=== PATIENT | male | born 1955 | race African-American/Black ===

== ENCOUNTER 2017-05-01 09:05 | Inpatient (IN) | payer MEDICAID, OTHER ==
[2017-05-01] VITALS (27 sets, daily range): BP systolic 123–167; BP diastolic 77–136
[~2017-05-01] VITALS: Ht 170.2 cm; Wt 69.9 kg
[~2017-05-01 09:05] MED LIST: ASPIRIN EC325 MG ORAL; METOPROLOL TART25 MG ORAL; NKM
[2017-05-01] MEDS ORDERED: Aspirin Baby 81mg ORAL ONE (09:30)
[2017-05-01 09:59] LABS: BASOPHILS % (AUTO) 1.5 % (0.0-2.0); EOSINOPHILS % (AUTO) 2.3 % (0.0-3.0); LYMPHOCYTES % (AUTO) 35.2 % (20.0-45.0); MEAN CORPUSCULAR HEMOGLOBIN 24.1 PG (27.0-31.0); MEAN CORPUSCULAR HGB CONC 31.3 G/DL (32.0-36.0); MEAN CORPUSCULAR VOLUME 77 FL (80-99); MEAN PLATELET VOLUME 8.6 FL (6.5-10.1); MONOCYTES % (AUTO) 5.5 % (1.0-10.0); NEUTROPHILS % (AUTO) 55.6 % (45.0-75.0); PLATELET COUNT 237 K/UL (150-450); RED BLOOD COUNT 6.33 M/UL (4.70-6.10); RED CELL DISTRIBUTION WIDTH 13.9 % (11.6-14.8); WHITE BLOOD COUNT 7.6 K/UL (4.8-10.8)
[2017-05-01 10:00] LABS: APPEARANCE,URINE CLEAR; KETONES,URINE NEGATIVE (NEGATIVE); LEUKOCYTE ESTERASE ,URINE 2+ (NEGATIVE); NITRITE,URINE NEGATIVE (NEGATIVE); PH,URINE 6.5 (4.5-8.0); PROTEIN,URINE 2+ (NEGATIVE); UROBILINOGEN,URINE 1 MG/DL (0.0-1.0)
[2017-05-01 10:10] LABS: RBC,URINE 0-2 /HPF (0 - 0); SQUAMOUS EPITHELIAL CELL,UR FEW /LPF (NONE/OCC); WBC,URINE 15-20 /HPF (0 - 0)
[2017-05-01 10:11] LABS: BACTERIA,URINE FEW /HPF
--- NOTE | 2017-05-01 10:14 | Diagnostic Imaging Report ---
Indication: Chest pain Technique: One view of the chest Comparison: 03/21/2014 Findings: The heart is of is normal in size. Lungs and pleural spaces are clear. The aorta is tortuous and ectatic. There is no significant change Impression: No acute process
[2017-05-01] MEDS ORDERED: Diltiazem 25mg/5ml IV ONE ×2 (10:15→12:45)
[2017-05-01 10:22] LABS: ALANINE AMINOTRANSFERASE 24 U/L (3-41); ALBUMIN/GLOBULIN RATIO 1.3 (1.0-2.7); ANION GAP 15 (5-15); ASPARTATE AMINO TRANSFERASE 29 U/L (5-40); CALCIUM 9.3 mg/dL (8.6-10.2); CARBON DIOXIDE 22 mEQ/L (20-30); CHLORIDE 100 mEQ/L (98-107); CREATININE 1.3 mg/dL (0.7-1.2); GLOMERULAR FILTRATION RATE > 60 mL/min (>60); HEMOLYSIS 16; POTASSIUM 4.4 mEQ/L (3.4-4.9); SODIUM 137 mEQ/L (135-145); TOTAL PROTEIN 6.9 g/dL (6.6-8.7); TROPONIN I < 0.30 ng/mL (<=0.30)
[2017-05-01 10:26] LABS: PROTHROMBIN TIME 10.9 SEC (9.30-11.50)
[2017-05-01 10:32] LABS: CKMB 1.6 ng/mL (< 6.7)
--- NOTE | 2017-05-01 13:20 | Emergency Room Report ---
History of Present Illness General Chief Complaint: Chest Pain Source: Patient Present Illness [facility] This patient presents with chest pain. The patient states that around 10 PM last night he developed chest pain and tightness. He states that he was about to go to bed and the symptoms began. He denies recent illness. He denies fever chills. Denies cough or congestion. He denies nausea or vomiting. He has no other complaints. Allergies: Coded Allergies: No Known Allergies (Unverified , 03/21/14) Patient History Past Medical History: see triage record, GERD, other - arrhythmia (pt states told he needs a pacemaker) Social History: Reports: alcohol use, drug use, smoking Reviewed Nursing Documentation: PMH: Agreed, PSxH: Agreed Nursing Documentation-PMH Past Medical History: No History, Except For Hx Cardiac Problems: Yes - irregular heartbeat Hx Hypertension: No Hx Pacemaker: No Hx Asthma: No Hx COPD: No Hx Diabetes: No Hx Cancer: No Hx Gastrointestinal Problems: Yes - GERD Hx Dialysis: No Hx Cerebrovascular Accident: No Hx Seizures: No Review of Systems All Other Systems: negative except mentioned in HPI Physical Exam Vital Signs Date Time Temp Pulse Resp B/P Pulse Ox O2 Delivery O2 Flow Rate FiO2 05/01/17 09:12 97.7 148 22 124/89 98 Room Air Sp02 EP Interpretation: reviewed, normal General Appearance: no apparent distress, alert, GCS 15, non-toxic Head: normocephalic, atraumatic Eyes: bilateral eye PERRL, bilateral eye normal inspection ENT: hearing grossly normal, normal pharynx, no angioedema, normal voice Neck: full range of motion, supple/symm/no masses Respiratory: chest non-tender, lungs clear, normal breath sounds, no respiratory distress, no retraction, no accessory muscle use, speaking full sentences Cardiovascular #1: no edema, tachycardia Gastrointestinal: normal bowel sounds, non tender, soft, non-distended, no guarding, no rebound Rectal: deferred Musculoskeletal: back normal, gait/station normal, normal range of motion, non- tender Neurologic: alert, oriented x3, responsive, motor strength/tone normal, sensory intact, speech normal Psychiatric: judgement/insight normal, memory normal, mood/affect normal, no suicidal/homicidal ideation Skin: normal color, no rash, warm/dry, well hydrated Medical Decision Making Diagnostic Impression: Primary Impression: Chest pain Additional Impressions: Cocaine abuse Atrial fibrillation with RVR ER Course This patient presents with chest pain and tachycardia into the 140s. He was also found to have a positive urinalysis for cocaine. He states that he thinks the marijuana he used at a concert had cocaine in it. Initial evaluation for acute coronary syndrome is negative with a normal troponin. This patient will be admitted for uncontrolled tachycardia. He was given 20 mg of diltiazem IV here in the emergency department. He did have a persistent her he in the 130s to 140s. Therefore, I started this patient on a diltiazem drip. He was admitted for further evaluation and treatment. This patient is critically ill. This patient required complex medical decision- making, aggressive intervention, extensive laboratory workup and monitoring. Critical care time: 40 minutes. Labs Test 05/01/17 09:30 05/01/17 09:51 White Blood Count 7.6 K/UL (4.8-10.8) Red Blood Count 6.33 M/UL (4.70-6.10) Hemoglobin 15.2 G/DL (14.2-18.0) Hematocrit 48.6 % (42.0-52.0) Mean Corpuscular Volume 77 FL (80-99) Mean Corpuscular Hemoglobin 24.1 PG (27.0-31.0) Mean Corpuscular Hemoglobin Concent 31.3 G/DL (32.0-36.0) Red Cell Distribution Width 13.9 % (11.6-14.8) Platelet Count 237 K/UL (150-450) Mean Platelet Volume 8.6 FL (6.5-10.1) Neutrophils (%) (Auto) 55.6 % (45.0-75.0) Lymphocytes (%) (Auto) 35.2 % (20.0-45.0) Monocytes (%) (Auto) 5.5 % (1.0-10.0) Eosinophils (%) (Auto) 2.3 % (0.0-3.0) Basophils (%) (Auto) 1.5 % (0.0-2.0) Prothrombin Time 10.9 SEC (9.30-11.50) Prothromb Time International Ratio 1.0 (0.9-1.1) Activated Partial Thromboplast Time 30 SEC (23-33) Sodium Level 137 mEQ/L (135-145) Potassium Level 4.4 mEQ/L (3.4-4.9) Chloride Level 100 mEQ/L (98-107) Carbon Dioxide Level 22 mEQ/L (20-30) Anion Gap 15 (5-15) Blood Urea Nitrogen 11 mg/dL (7-23) Creatinine 1.3 mg/dL (0.7-1.2) Estimat Glomerular Filtration Rate > 60 mL/min (>60) Glucose Level 147 mg/dL (74-106) Calcium Level 9.3 mg/dL (8.6-10.2) Total Bilirubin 0.6 mg/dL (0.0-1.2) Aspartate Amino Transf (AST/SGOT) 29 U/L (5-40) Alanine Aminotransferase (ALT/SGPT) 24 U/L (3-41) Alkaline Phosphatase 91 U/L (40-129) Total Creatine Kinase 60 U/L (38-174) Creatine Kinase MB 1.6 ng/mL (< 6.7) Creatine Kinase MB Relative Index 2.6 Troponin I < 0.30 ng/mL (<=0.30) Pro-B-Type Natriuretic Peptide 3279 pg/mL (0-125) Total Protein 6.9 g/dL (6.6-8.7) Albumin 4.0 g/dL (3.5-5.2) Globulin 2.9 g/dL Albumin/Globulin Ratio 1.3 (1.0-2.7) Urine Color Yellow Urine Appearance Clear Urine pH 6.5 (4.5-8.0) Urine Specific [place] 1.010 (1.005-1.035) Urine Protein 2+ (NEGATIVE) Urine Glucose (UA) Negative (NEGATIVE) Urine Ketones Negative (NEGATIVE) Urine Occult Blood Negative (NEGATIVE) Urine Nitrite Negative (NEGATIVE) Urine Bilirubin Negative (NEGATIVE) Urine Urobilinogen 1 MG/DL (0.0-1.0) Urine Leukocyte Esterase 2+ (NEGATIVE) Urine RBC 0-2 /HPF (0 - 0) Urine WBC 15-20 /HPF (0 - 0) Urine Squamous Epithelial Cells Few /LPF (NONE/OCC) Urine Bacteria Few /HPF (NONE) Urine Opiates Screen Negative (NEGATIVE) Urine Barbiturates Screen Negative (NEGATIVE) Phencyclidine (PCP) Screen Negative (NEGATIVE) Urine Amphetamines Screen Negative (NEGATIVE) Urine Benzodiazepines Screen Negative (NEGATIVE) Urine Cocaine Screen Positive (NEGATIVE) Urine Marijuana (THC) Screen Positive (NEGATIVE) EKG Diagnostic Results Rate: tachycardiac Rhythm: other ST Segments: no acute changes Other Impression A.fib w/ RVR Chest X-Ray Diagnostic Results Chest X-Ray Ordered: Yes # of Views/Limited/Complete: 1 View Interpretation: no consolidation, no effusion, no pneumothorax, no acute cardiopulmonary disease Indication: Chest Pain Impression: No acute disease Date Electronically Signed: May 01, 2017 Time Electronically Signed: 13:35 Last Vital Signs Date Time Temp Pulse Resp B/P Pulse Ox O2 Delivery O2 Flow Rate FiO2 05/01/17 12:49 135 153/122 05/01/17 11:30 22 98 Room Air 05/01/17 09:12 97.7 Disposition: ADMITTED INPATIENT Condition: Critical Referrals: JARRET GRIJALVA PLN,REFERRI (PCP) SHERIN BLEDSOE D.O. May 01, 2017 13:20
[2017-05-01] MEDS ORDERED: Diltiazem 125mg/25ml Inj IV ONE (14:00)
[2017-05-01] MEDS ORDERED: Morphine Sulfate 2mg/ml Inj IVP PRN ×2 (16:15→17:00)
[2017-05-01] MEDS ORDERED: Nitroglycerin Subl 0.4mg tab (Bottle Of 25) SL PRN (16:15)
[2017-05-01] MEDS: Enoxaparin Sodium 300mg/3ml vial SUBQ SCH (17:40)
--- NOTE | 2017-05-01 19:47 | Cardiology Progress Note ---
Assessment/Plan Assessment/Plan The patient is seen and examined, full consult note will be dictated. Objective Last 24 Hour Vital Signs Date Time Temp Pulse Resp B/P Pulse Ox O2 Delivery O2 Flow Rate FiO2 05/01/17 18:00 132 26 142/115 99 Room Air 05/01/17 17:24 139 05/01/17 17:01 134 20 133/120 99 Room Air 05/01/17 17:00 97.0 135 24 160/100 99 Room Air 05/01/17 15:47 146 21 144/103 99 Room Air 05/01/17 15:32 146 21 131/100 98 Room Air 05/01/17 15:17 134 16 147/112 99 Room Air 05/01/17 15:02 129 21 149/110 99 Room Air 05/01/17 14:47 138 21 163/129 100 Room Air 05/01/17 14:32 141 22 160/111 100 Room Air 05/01/17 14:17 130 23 137/109 100 Room Air 05/01/17 14:02 135 23 167/108 100 Room Air 05/01/17 14:02 135 167/108 05/01/17 13:12 97.8 117 21 133/105 100 Room Air 05/01/17 12:49 135 153/122 05/01/17 11:30 123 22 146/109 98 Room Air 05/01/17 11:02 142 22 146/109 98 Room Air 05/01/17 10:31 145 139/103 05/01/17 09:39 148 22 Room Air 05/01/17 09:39 146 22 124/89 98 Room Air 05/01/17 09:12 97.7 148 22 124/89 98 Room Air Laboratory Tests Test 05/01/17 09:30 05/01/17 09:51 05/01/17 10:00 White Blood Count 7.6 K/UL (4.8-10.8) Red Blood Count 6.33 M/UL (4.70-6.10) H Hemoglobin 15.2 G/DL (14.2-18.0) Hematocrit 48.6 % (42.0-52.0) Mean Corpuscular Volume 77 FL (80-99) L Mean Corpuscular Hemoglobin 24.1 PG (27.0-31.0) L Mean Corpuscular Hemoglobin Concent 31.3 G/DL (32.0-36.0) L Red Cell Distribution Width 13.9 % (11.6-14.8) Platelet Count 237 K/UL (150-450) Mean Platelet Volume 8.6 FL (6.5-10.1) Neutrophils (%) (Auto) 55.6 % (45.0-75.0) Lymphocytes (%) (Auto) 35.2 % (20.0-45.0) Monocytes (%) (Auto) 5.5 % (1.0-10.0) Eosinophils (%) (Auto) 2.3 % (0.0-3.0) Basophils (%) (Auto) 1.5 % (0.0-2.0) Prothrombin Time 10.9 SEC (9.30-11.50) Prothromb Time International Ratio 1.0 (0.9-1.1) Activated Partial Thromboplast Time 30 SEC (23-33) Sodium Level 137 mEQ/L (135-145) Potassium Level 4.4 mEQ/L (3.4-4.9) Chloride Level 100 mEQ/L (98-107) Carbon Dioxide Level 22 mEQ/L (20-30) Anion Gap 15 (5-15) Blood Urea Nitrogen 11 mg/dL (7-23) Creatinine 1.3 mg/dL (0.7-1.2) H Estimat Glomerular Filtration Rate > 60 mL/min (>60) Glucose Level 147 mg/dL (74-106) H Calcium Level 9.3 mg/dL (8.6-10.2) Total Bilirubin 0.6 mg/dL (0.0-1.2) Aspartate Amino Transf (AST/SGOT) 29 U/L (5-40) Alanine Aminotransferase (ALT/SGPT) 24 U/L (3-41) Alkaline Phosphatase 91 U/L (40-129) Total Creatine Kinase 60 U/L (38-174) Creatine Kinase MB 1.6 ng/mL (< 6.7) Creatine Kinase MB Relative Index 2.6 Troponin I < 0.30 ng/mL (<=0.30) Pro-B-Type Natriuretic Peptide 3279 pg/mL (0-125) H Total Protein 6.9 g/dL (6.6-8.7) Albumin 4.0 g/dL (3.5-5.2) Globulin 2.9 g/dL Albumin/Globulin Ratio 1.3 (1.0-2.7) Urine Color Yellow Urine Appearance Clear Urine pH 6.5 (4.5-8.0) Urine Specific [place] 1.010 (1.005-1.035) Urine Protein 2+ (NEGATIVE) H Urine Glucose (UA) Negative (NEGATIVE) Urine Ketones Negative (NEGATIVE) Urine Occult Blood Negative (NEGATIVE) Urine Nitrite Negative (NEGATIVE) Urine Bilirubin Negative (NEGATIVE) Urine Urobilinogen 1 MG/DL (0.0-1.0) H Urine Leukocyte Esterase 2+ (NEGATIVE) H Urine RBC 0-2 /HPF (0 - 0) H Urine WBC 15-20 /HPF (0 - 0) H Urine Squamous Epithelial Cells Few /LPF (NONE/OCC) Urine Bacteria Few /HPF (NONE) Urine Opiates Screen Negative (NEGATIVE) Urine Barbiturates Screen Negative (NEGATIVE) Phencyclidine (PCP) Screen Negative (NEGATIVE) Urine Amphetamines Screen Negative (NEGATIVE) Urine Benzodiazepines Screen Negative (NEGATIVE) Urine Cocaine Screen Positive (NEGATIVE) H Urine Marijuana (THC) Screen Positive (NEGATIVE) H Hemoglobin A1c 6.3 % (< 6.0) H KATERINA ANN May 01, 2017 19:47
[2017-05-01] MEDS ORDERED: Triamterene/Hctz 37.5/25 cap ORAL SCH (20:00)
[2017-05-01] MEDS ORDERED: Ketorolac 30mg Inj IV PRN (23:00)
[2017-05-02] VITALS (14 sets, daily range): BP systolic 122–151; BP diastolic 72–97
[2017-05-02] MEDS ORDERED: Morphine Sulfate 2mg/ml Inj IVP ONE (00:15)
[2017-05-02] MEDS: Enoxaparin Sodium 300mg/3ml vial SUBQ SCH (06:00)
[2017-05-02 06:03] LABS: BASOPHILS % (AUTO) 1.1 % (0.0-2.0); EOSINOPHILS % (AUTO) 2.8 % (0.0-3.0); MEAN CORPUSCULAR HEMOGLOBIN 24.4 PG (27.0-31.0); MEAN CORPUSCULAR HGB CONC 31.6 G/DL (32.0-36.0); MEAN CORPUSCULAR VOLUME 77 FL (80-99); MEAN PLATELET VOLUME 7.5 FL (6.5-10.1); NEUTROPHILS % (AUTO) 43.1 % (45.0-75.0); PLATELET COUNT 197 K/UL (150-450); RED BLOOD COUNT 5.53 M/UL (4.70-6.10); WHITE BLOOD COUNT 7.3 K/UL (4.8-10.8)
[2017-05-02 06:15] LABS: ANION GAP 14 (5-15); CALCIUM 8.9 mg/dL (8.6-10.2); CARBON DIOXIDE 24 mEQ/L (20-30); CHLORIDE 102 mEQ/L (98-107); CREATININE 1.4 mg/dL (0.7-1.2); GLOMERULAR FILTRATION RATE > 60 mL/min (>60); HEMOLYSIS 2; POTASSIUM 4.5 mEQ/L (3.4-4.9); SODIUM 140 mEQ/L (135-145)
--- NOTE | 2017-05-02 08:58 | History & Physical ---
History and Physical History & Physicial seen and examind. Dict is completed Ani Li MD May 02, 2017 08:58
--- NOTE | 2017-05-02 09:00 | General Progress Note ---
Assessment/Plan Assessment/Plan Patient Refused examination. Patient asking to Leave Now. Patient Refusing signing AMA. Risk of this decision including is explained to patient. ICU director of medical staff services at bed side Subjective ROS Limited/Unobtainable: Yes Allergies: Coded Allergies: No Known Allergies (Unverified , 03/21/14) Objective Last 24 Hour Vital Signs Date Time Temp Pulse Resp B/P Pulse Ox O2 Delivery O2 Flow Rate FiO2 05/02/17 06:11 126/78 05/02/17 06:00 55 15 126/77 98 Room Air 05/02/17 05:30 55 15 126/78 98 Room Air 05/02/17 05:00 55 15 140/85 98 Room Air 05/02/17 04:30 55 15 127/84 98 Room Air 05/02/17 04:00 97.2 55 16 122/72 99 Room Air 05/02/17 04:00 56 05/02/17 03:30 59 18 124/80 99 Room Air 05/02/17 03:00 54 15 137/76 97 Room Air 05/02/17 02:30 57 15 142/86 97 Room Air 05/02/17 02:00 57 15 151/97 97 Room Air 05/02/17 01:30 57 15 139/82 96 Room Air 05/02/17 01:00 58 17 140/78 98 Room Air 05/02/17 00:53 69 05/02/17 00:30 63 15 147/78 97 Room Air 05/02/17 00:00 97.0 64 17 138/96 98 Room Air 05/02/17 00:00 126/77 05/01/17 23:30 65 15 126/77 98 Room Air 05/01/17 23:00 76 24 138/81 95 Room Air 05/01/17 22:30 66 21 150/115 96 Room Air 05/01/17 22:00 66 24 138/81 95 Room Air 05/01/17 21:30 67 27 140/93 95 Room Air 05/01/17 21:00 71 27 145/80 95 Room Air 05/01/17 20:30 74 25 141/82 94 Room Air 05/01/17 20:17 158/136 05/01/17 20:01 78 140/95 05/01/17 20:00 97.2 77 26 158/136 94 Room Air 05/01/17 19:30 132 26 142/115 99 Room Air 05/01/17 19:00 77 25 140/95 97 Room Air 05/01/17 18:00 132 26 142/115 99 Room Air 05/01/17 17:24 139 05/01/17 17:01 134 20 133/120 99 Room Air 05/01/17 17:00 97.0 135 24 160/100 99 Room Air 05/01/17 16:32 128 20 133/120 98 Room Air 05/01/17 16:17 135 21 135/106 98 Room Air 05/01/17 16:02 141 22 123/79 99 Room Air 05/01/17 15:47 146 21 144/103 99 Room Air 05/01/17 15:32 146 21 131/100 98 Room Air 05/01/17 15:17 134 16 147/112 99 Room Air 05/01/17 15:02 129 21 149/110 99 Room Air 05/01/17 14:47 138 21 163/129 100 Room Air 05/01/17 14:32 141 22 160/111 100 Room Air 05/01/17 14:17 130 23 137/109 100 Room Air 05/01/17 14:02 135 23 167/108 100 Room Air 05/01/17 14:02 135 167/108 05/01/17 13:12 97.8 117 21 133/105 100 Room Air 05/01/17 12:49 135 153/122 05/01/17 11:30 123 22 146/109 98 Room Air 05/01/17 11:02 142 22 146/109 98 Room Air 05/01/17 10:31 145 139/103 05/01/17 09:39 148 22 Room Air 05/01/17 09:39 146 22 124/89 98 Room Air 05/01/17 09:12 97.7 148 22 124/89 98 Room Air Intake and Output 05/01/17 05/02/17 19:00 07:00 Intake Total 270 ml 179 ml Output Total 300 ml 1300 ml Balance -30 ml -1121 ml Intake Oral 240 ml 120 ml IV Total 30 ml 59 ml Output Urine Total 300 ml 1300 ml # Voids 1 Laboratory Tests 05/01/17 09:30: White Blood Count 7.6, Red Blood Count 6.33H, Hemoglobin 15.2, Hematocrit 48.6, Mean Corpuscular Volume 77L, Mean Corpuscular Hemoglobin 24.1L, Mean Corpuscular Hemoglobin Concent 31.3L, Red Cell Distribution Width 13.9, Platelet Count 237, Mean Platelet Volume 8.6, Neutrophils (%) (Auto) 55.6, Lymphocytes (%) (Auto) 35.2, Monocytes (%) (Auto) 5.5, Eosinophils (%) (Auto) 2.3, Basophils (%) (Auto) 1.5, Prothrombin Time 10.9, Prothromb Time International Ratio 1.0, Activated Partial Thromboplast Time 30, Sodium Level 137, Potassium Level 4.4, Chloride Level 100, Carbon Dioxide Level 22, Anion Gap 15, Blood Urea Nitrogen 11, Creatinine 1.3H, Estimat Glomerular Filtration Rate > 60, Glucose Level 147H, Calcium Level 9.3, Total Bilirubin 0.6, Aspartate Amino Transf (AST/SGOT) 29, Alanine Aminotransferase (ALT/SGPT) 24, Alkaline Phosphatase 91, Total Creatine Kinase 60, Creatine Kinase MB 1.6, Creatine Kinase MB Relative Index 2.6, Troponin I < 0.30, Pro-B-Type Natriuretic Peptide 3279H, Total Protein 6.9, Albumin 4.0, Globulin 2.9, Albumin /Globulin Ratio 1.3 05/01/17 09:51: Urine Color Yellow, Urine Appearance Clear, Urine pH 6.5, Urine Specific [place] 1.010, Urine Protein 2+H, Urine Glucose (UA) Negative, Urine Ketones Negative, Urine Occult Blood Negative, Urine Nitrite Negative, Urine Bilirubin Negative, Urine Urobilinogen 1H, Urine Leukocyte Esterase 2+H, Urine RBC 0-2H, Urine WBC 15-20H, Urine Squamous Epithelial Cells Few, Urine Bacteria Few, Urine Opiates Screen Negative, Urine Barbiturates Screen Negative, Phencyclidine (PCP) Screen Negative, Urine Amphetamines Screen Negative, Urine Benzodiazepines Screen Negative, Urine Cocaine Screen PositiveH, Urine Marijuana (THC) Screen PositiveH 05/01/17 10:00: Hemoglobin A1c 6.3H 05/02/17 03:46: White Blood Count 7.3, Red Blood Count 5.53, Hemoglobin 13.5L, Hematocrit 42.6, Mean Corpuscular Volume 77L, Mean Corpuscular Hemoglobin 24.4L, Mean Corpuscular Hemoglobin Concent 31.6L, Red Cell Distribution Width 14.0, Platelet Count 197, Mean Platelet Volume 7.5, Neutrophils (%) (Auto) 43.1L, Lymphocytes (%) (Auto) 45.0, Monocytes (%) (Auto) 8.0, Eosinophils (%) (Auto) 2.8, Basophils (%) (Auto) 1.1, Sodium Level 140, Potassium Level 4.5, Chloride Level 102, Carbon Dioxide Level 24, Anion Gap 14, Blood Urea Nitrogen 11, Creatinine 1.4H, Estimat Glomerular Filtration Rate > 60, Glucose Level 104, Calcium Level 8.9 Height (Feet): 5 Height (Inches): 7.00 Weight (Pounds): 154 General Appearance: agitated, combative Ani Li MD May 02, 2017 09:00
--- NOTE | 2017-05-02 15:15 | History and Physical Report ---
DATE OF ADMISSION: 05/01/2017 ADMISSION HISTORY AND PHYSICAL SOURCE OF INFORMATION: The patient and EMR. HISTORY OF PRESENT ILLNESS: The patient is a 62-year-old, male, presented with the acute onset of the chest pain and tightness. The patient reported that it happens in the bedroom. Denies any loss of consciousness or dizziness. Denies any cough or nausea vomitus. Denies any severe headache. PAST MEDICAL HISTORY: GERD and arrhythmias, (the patient is not sure). MEDICATIONS: Hospital medications including diltiazem, Lovenox, hydralazine, isosorbide nitrate, and Bactrim. ALLERGIES: NKDA. SOCIAL HISTORY: The patient reported nonspecific quantity and quality of alcohol, drug, and tobacco smoking abuses. FAMILY HISTORY: Reviewed and noncontributory. REVIEW OF SYSTEMS: All pertinent positive and negative elements are reviewed as above. Remainder of 12 points review of systems are reviewed with the patient. PHYSICAL EXAMINATION: VITAL SIGNS: Blood pressure 150/70, temperature 98.2 degrees, pulse rate 70-80, respiratory rate 18, and pulse oximetry 95% on room air. HEENT: Head and neck, atraumatic and normocephalic. CHEST: Clear to auscultation. HEART: S1 and S2. Irregularly irregular. ABDOMEN: Soft. No organomegaly. MUSCULOSKELETAL: No gross focal motor deficit. NEUROLOGIC: The patient is awake, alert and oriented x3. LABORATORY AND DIAGNOSTIC DATA: Chest x-ray, dated 05/01/2017 is negative for any acute pathology. Labs dated 05/01/2017, WBC 7.6, hemoglobin 15.2, and platelets 237,000. Sodium 137, potassium 4.4, BUN is 11, and creatinine 1.3. AST and ALT normal. BNP 3200. UA positive for UTI, drug screen positive for cocaine and positive for marijuana. ASSESSMENT AND PLAN: 1. Acute coronary syndrome. 2. Atrial fibrillation with rapid ventricular rate. 3. Abnormal BNP possibility of congestive heart failure cannot be excluded. 4. Agitation and anxiety. 5. Substance abuse. 6. Gastrointestinal and deep vein thrombosis prophylaxes. PLAN OF CARE: A 2D echo ordered. Agreed with the ICU admission. Case was discussed with Cardiology, Dr. Jack. Continue with the current calcium channel aruna drips. Ani Li M.D. DR: Ana María JOB#: [id number] CC:
--- NOTE | 2017-05-04 11:02 | Discharge Summary ---
Discharge Summary Hospital Course Date of Admission May 01, 2017 at 11:20 Date of Discharge May 02, 2017 at 08:00 Admitting Diagnosis Tachycardia, Chest pain/r/o ACS HPI Willy Ruby is a 62 year old male who was admitted on May 01, 2017 at 11:20 for Tachycardia,Chest Pain R/O Acute Coronary Syndrome Hospital Course DC SUMMARY #[id number] Discharge Discharge Disposition Patient signed AMA Discharge Diagnoses: Discharge Instructions Discharge Instructions Special Instructions I have been assigned to complete a D/C Summary on this account. I was not involved in the patient management Erica Swanson NP ([place]) May 04, 2017 11:02
--- NOTE | 2017-05-05 03:15 | Discharge Summary 2 SIG ---
DATE OF ADMISSION: 05/01/2017 DATE OF SIGNING AGAINST MEDICAL ADVISE : 05/02/2017 REASON FOR ADMISSION: 62-year-old male presented to the emergency department with complaint of chest pain, which started the night before. He complained of chest pain and tightness. He denied fever, chills, cough, or congestion. No nausea, no vomiting. No shortness of breath. The patient was tachycardic with a heart rate of 148. EKG revealed atrial fibrillation with rapid ventricular response. The patient was afebrile and normotensive. Respiratory rate- 22, pulse oximetry -98% on the room air. The patient was given Cardizem intravenous 20 mg x1, but patient continued to have persistent tachycardia in rate 130 to 140. The patient started on Cardizem drip and transferred to ICU for further management. Chest x-ray revealed no acute cardiopulmonary disease. First troponin was negative. No leukocytosis. Urine drug screen was positive for cocaine. Pro BNP - 3279. ADMITTING DIAGNOSES: 1. Chest pain 2. Rule out acute coronary syndrome. 3. Atrial fibrillation with rapid ventricular response. 4. Possible congestive heart failure. 5. Cocaine abuse. 6. Anxiety. HOSPITAL STAY: The patient admitted to intensive care unit. The patient was on the Cardizem drip. Cardiology consult was requested. At around 3 a.m. on 05/02/2017, Cardizem drip was stopped. Heart rate was down to normal. The patient was started on anticoagulation with Lovenox twice a day. Blood pressure was managed with diuretic. Echocardiogram was pending. Pulse oximetry was stable on the room air. Blood pressure was stable. The patient decided to sign against medical advice. He avoided talking to the doctor, which was witnessed by the nursing stuff and initially refused to sign AMA form. Risks and consequences of signing against medical advice including were explained to the patient, but the patient insisted to leave. FINAL DIAGNOSES: 1. Chest pain, 2. Rule out acute coronary syndrome. 3. Atrial fibrillation with rapid ventricular response. 4. Possible congestive heart failure. 5. Cocaine abuse. 6. Anxiety. Mohammad Rezvani, M.D. I have been assigned to dictate discharge summary on this account and I was not involved in the patient's management. Erica Swanson (Vanchtein) NJosé MiguelPJosé Miguel DR: SLADE JOB#: [id number] CC: ISADORA
--- NOTE | 2017-05-05 18:18 | Cardiology Report ---
APPROVED REPORT EKG Measurement Heart [id number] 120P [id number] atrial flutter Left axis deviation Left ventricular hypertrophy with QRS widening Abnormal ECG
== END 2017-05-02 08:00 | disposition left against medical advice (07) | DRG 198 ==
LOC: EMR 09:48 → ICU 11:20 → EDBEDREQSVC 14:11 → EDBEDREQ 14:11
DX: I24.9 Acute ischemic heart disease, unspecified (principal); I50.9 Heart failure, unspecified; F14.10 Cocaine abuse, uncomplicated; K21.9 Gastro-esophageal reflux disease without esophagitis; I48.91 Unspecified atrial fibrillation; F41.9 Anxiety disorder, unspecified; Z53.21 Procedure and treatment not carried out due to patient leaving prior to being seen by health care provider
CPT/HCPCS: 36415; 71010; 80048; 80053; 80300; 81003; 82550; 82553; 83036; 83880; 84484; 85025; 85610; 85730; 87081; 87086; 93005

== ENCOUNTER 2017-06-14 14:31 | Emergency (ER) | payer OTHER ==
[~2017-06-14] VITALS: Ht 170.2 cm; Wt 68.0 kg
[2017-06-14 14:31] VITALS: BP 163/89
--- NOTE | 2017-06-14 14:53 | Emergency Room Report ---
History of Present Illness General Chief Complaint: Behavioral Complaint Present Illness HPI 62 YO male presents to ED c/o SOB, and chest tightness intermittent since yesterday am. pt. states was awoken at 3am yesterday with chest tightness and feeling short of breath which resolved after approximately 40 minutes. pt. states he had another episode today which prompted him. Pt. reports cocaine use once yesterday evening amount was less than a line estimated as a "bump". Pt. denies hx of asthma. reports hx of a-fib and states he has not gotten a refill of his medication for a-fib. does not recall name of medication. pt. denies n/v/ f/c. neck pain, arm pain, weakness, cough, recent ill contacts, or sputum production. Denies Palpitations, LOC, AMS, dizziness, Changes in Vision, Sensation, paresthesias, or a sudden severe headache. (Imani Nagy P.A.) Allergies: Coded Allergies: No Known Allergies (Unverified , 03/21/14) Patient History Past Medical History: see triage record Past Surgical History: none Pertinent Family History: none Social History: Reports: drug use - cocaine and THC Immunizations: UTD Reviewed Nursing Documentation: PMH: Agreed, PSxH: Agreed (Imani Nagy P.A.) Nursing Documentation-PMH Hx Cardiac Problems: Yes - heart attack Hx Hypertension: Yes Hx Pacemaker: No Hx Asthma: No Hx COPD: No Hx Diabetes: No Hx Cancer: No Hx Gastrointestinal Problems: No Hx Dialysis: No Hx Neurological Problems: Yes Hx Cerebrovascular Accident: Yes - mild stroke , Hx Seizures: No (Imani Nagy P.A.) Review of Systems All Other Systems: negative except mentioned in HPI (Imani Nagy P.A.) Physical Exam Vital Signs Date Time Temp Pulse Resp B/P Pulse Ox O2 Delivery O2 Flow Rate FiO2 06/14/17 14:24 98.2 86 18 163/89 100 Room Air Sp02 EP Interpretation: reviewed, normal General Appearance: no apparent distress, alert, GCS 15, non-toxic Head: normocephalic, atraumatic Eyes: bilateral eye PERRL, bilateral eye normal inspection ENT: hearing grossly normal, normal pharynx, no angioedema, normal voice Neck: full range of motion, supple/symm/no masses Respiratory: chest non-tender, lungs clear, normal breath sounds, speaking full sentences, other - pain is not reproducible, no wheezes, lungs are CTA. Cardiovascular #1: regular rate, rhythm, no edema, normal capillary refill Gastrointestinal: normal bowel sounds, non tender, soft, no guarding, no rebound Rectal: deferred Genitourinary: normal inspection Musculoskeletal: back normal, gait/station normal, normal range of motion, non- tender Neurologic: alert, oriented x3, responsive, motor strength/tone normal, sensory intact, speech normal Psychiatric: judgement/insight normal, memory normal, mood/affect normal Reflexes: 4+ bicep (R), 4+ bicep (L), 4+ tricep (R), 4+ tricep (L), 4+ knee (R) , 4+ knee (L) Skin: normal color, no rash, warm/dry, well hydrated Lymphatic: no adenopathy (Imani Nagy P.AJosé Miguel) Medical Decision Making PA Attestation Dr. Donnelly is my supervising Physician whom patient management has been discussed with. (Imani Nagy P.A.) Diagnostic Impression: Primary Impression: Chest pain in adult Additional Impressions: Shortness of breath Heart failure Qualified Codes: I50.9 - Heart failure, unspecified Cocaine abuse ER Course 62 YO male presents to ED c/o SOB, and chest tightness intermittent since yesterday am. pt. states was awoken at 3am yesterday with chest tightness and feeling short of breath which resolved after approximately 40 minutes. pt. states he had another episode today which prompted him. Pt. reports cocaine use once yesterday evening amount was less than a line estimated as a "bump". Pt. denies hx of asthma. reports hx of a-fib and states he has not gotten a refill of his medication for a-fib. does not recall name of medication. pt. denies n/v/ f/c. neck pain, arm pain, weakness, cough, recent ill contacts, or sputum production. Denies Palpitations, LOC, AMS, dizziness, Changes in Vision, Sensation, paresthesias, or a sudden severe headache. Ddx considered but are not limited to MO, pneumonia, contusion, costochondritis , PE, ACS, Shoulder strain, Chest wall contusion. aortic dissection, cocaine induced coronary spasm. Vital signs: are WNL, pt. is afebrile H&PE are most consistent with [ ] ORDERS: - EK BPM with t-wave inversion in leads V4-6- this is consistent with review of previous EKG on 05/12 - per preliminary interpretation in ED by Dr. Donnelly, interpretation is scribed by ANUSHA Nagy -CBC: -CMP -BNP: elevated [id number] -CK-MB -Troponins: less than .3 CXR: ED INTERVENTIONS: - PT. placed on cardiac monitoring. -1 mg Ativan iv - for cocaine induced CP - 325 ASA PO - for CP, with ekg signs of ischemia and hx of a-fib, not taking prescribed medications. Suspect drug use while in the ED after initial evaluation and lab work. as pt. had normal VS, non-tachycardic and normal BP , was NAD , sitting comfortably in FT chair area. pt. was moved to monitored bed while awaiting results from lab work still NAD, ambulatory. Sudden deterioration in ED with tachycardia ranging from 120-140's with elevated systolic and diastolic BP's. became progressively tachypneic and incontinent ( bowel movement) repeat EKG showed tachycardia 126 with resolved lateral ischemia per interpretation by Dr. Donnelly. DISPOSITION: awaiting lab work before determination of final disposition. (Imani Nagy) ER Course Patient was admitted for acute CHF secondary to cocaine abuse. He diuresed well here. He was asking for pain medication and explained to him that I am uncomfortable giving pain medication with a history of cocaine abuse. At this point he became very combative and start cursing at me. He said he wants to leave. Patient diuresed a couple liters and felt better. Was able to get off of the BiPAP without any difficulty. Is walking around without any problem. Talking on the phone without any distress. He is competent to sign out AGAINST MEDICAL ADVICE. (STEPHON BEVERLY M.D.) EKG Diagnostic Results Rate: normal - 84 Rhythm: NSR ST Segments: other - inverted T-waves in the lateral leads ASA given to the pt in ED: Yes PA Scribe Text 84 BPM with t-wave inversion in leads V4-6- this is consistent with review of previous EKG on 05/12 - per preliminary interpretation in ED by Dr. Donnelly, interpretation is scribed by ANUSHA Nagy (Imani Nagy) Last Vital Signs Date Time Temp Pulse Resp B/P Pulse Ox O2 Delivery O2 Flow Rate FiO2 06/14/17 14:31 98.2 86 18 163/89 100 Room Air (Imani Nagy) Disposition: AGAINST MEDICAL ADVICE Condition: Stable Imani Nagy Jun 14, 2017 14:53 STEPHON BEVERLY M.D. Jun 14, 2017 21:06
[2017-06-14] MEDS ORDERED: LORazepam Inj 2mg/ml 1ml IV ONE ×2 (15:45→17:30)
[2017-06-14 16:10] VITALS: BP 174/124
[2017-06-14 16:33] LABS: ALANINE AMINOTRANSFERASE 61 U/L (3-41); ALBUMIN/GLOBULIN RATIO 1.4 (1.0-2.7); ANION GAP 16 (5-15); ASPARTATE AMINO TRANSFERASE 80 U/L (5-40); CARBON DIOXIDE 20 mEQ/L (20-30); CHLORIDE 102 mEQ/L (98-107); CREATININE 1.3 mg/dL (0.7-1.2); GLOMERULAR FILTRATION RATE > 60 mL/min (>60); HEMOLYSIS 17; SODIUM 138 mEQ/L (135-145); TOTAL PROTEIN 6.7 g/dL (6.6-8.7); TROPONIN I < 0.30 ng/mL (<=0.30)
[2017-06-14 16:44] LABS: CKMB 1.6 ng/mL (< 6.7)
[2017-06-14 17:49] VITALS: BP 178/124
[2017-06-14 17:50] LABS: BASOPHILS % (AUTO) 1.8 % (0.0-2.0); EOSINOPHILS % (AUTO) 2.7 % (0.0-3.0); MEAN CORPUSCULAR HEMOGLOBIN 25.1 PG (27.0-31.0); MEAN CORPUSCULAR HGB CONC 31.9 G/DL (32.0-36.0); MEAN CORPUSCULAR VOLUME 79 FL (80-99); MEAN PLATELET VOLUME 8.9 FL (6.5-10.1); NEUTROPHILS % (AUTO) 42.6 % (45.0-75.0); PLATELET COUNT 152 K/UL (150-450); RED BLOOD COUNT 5.68 M/UL (4.70-6.10); RED CELL DISTRIBUTION WIDTH 15.1 % (11.6-14.8); WHITE BLOOD COUNT 11.9 K/UL (4.8-10.8)
[2017-06-14 18:07] LABS: ALANINE AMINOTRANSFERASE 61 U/L (3-41); ALBUMIN/GLOBULIN RATIO 1.4 (1.0-2.7); ANION GAP 20 (5-15); ASPARTATE AMINO TRANSFERASE 72 U/L (5-40); CALCIUM 8.6 mg/dL (8.6-10.2); CARBON DIOXIDE 17 mEQ/L (20-30); CHLORIDE 102 mEQ/L (98-107); CREATININE 1.4 mg/dL (0.7-1.2); GLOMERULAR FILTRATION RATE > 60 mL/min (>60); HEMOLYSIS 4; SODIUM 139 mEQ/L (135-145); TOTAL PROTEIN 6.9 g/dL (6.6-8.7)
[2017-06-14 18:44] LABS: TROPONIN I < 0.30 ng/mL (<=0.30)
[2017-06-14 19:11] VITALS: BP 125/99
[2017-06-14 20:30] VITALS: BP 125/99
--- NOTE | 2017-06-15 12:16 | Diagnostic Imaging Report ---
Indication: Chest pain, abnormal chest sounds Technique: One view of the chest Comparison: 2 hours earlier Findings: Bilateral interstitial edema persists. Equivocal trace costophrenic angle blunting persists. Heart remains borderline enlarged. Impression: Unchanged, over 2 hours, findings as above. This agrees with the preliminary interpretation provided by the emergency room physician
--- NOTE | 2017-06-15 12:16 | Diagnostic Imaging Report ---
Indication: Chest pain Technique: One view of the chest Comparison: 05/01/2017 Findings: Interim development of interstitial edema, with prominent [place]ar B lines bilaterally. The heart is mildly enlarged. There may be trace bilateral pleural fluid. No focal airspace consolidation. Impression: Cardiomegaly with evidence of mild congestive heart failure. Suspect trace bilateral pleural effusions This agrees with the preliminary interpretation provided by the emergency room physician
--- NOTE | 2017-06-17 07:54 | Cardiology Report ---
APPROVED REPORT EKG Measurement Heart [id number] Sinus tachycardia Biatrial enlargement Left anterior fascicular block Nonspecific ST and T wave abnormality Abnormal ECG
== END 2017-06-14 20:30 | disposition left against medical advice (07) ==
LOC: EDBD 14:31 → EMR 14:58 → EDBEDREQ 17:39 → EDBEDREQSVC 17:39 → EMR 20:30
DX: R07.9 Chest pain, unspecified (principal); R06.02 Shortness of breath; I50.9 Heart failure, unspecified; F14.10 Cocaine abuse, uncomplicated; Z86.73 Personal history of transient ischemic attack (TIA), and cerebral infarction without residual deficits; F12.10 Cannabis abuse, uncomplicated
CPT/HCPCS: 36415; 71010; 80053; 80300; 82550; 82553; 83880; 84484; 85025; 93005; 94660; 96374; 96375; 99284; J1940; J2405